=== PATIENT | male | born 1975 | race Caucasian/White ===

== ENCOUNTER 2020-03-26 12:20 | Emergency (ER) | payer OTHER ==
[~2020-03-26] VITALS: Ht 175.3 cm; Wt 108.9 kg
[~2020-03-26 12:20] MED LIST: ACYC800 PO; AZIT500 PO; ERYT.5TO OD; HYDACE5 PO
== END 2020-03-26 16:11 | disposition home or self-care (01) ==
LOC: ER 12:20
DX: S51.811A Laceration without foreign body of right forearm, initial encounter (principal); Z23 Encounter for immunization; W25.XXXA Contact with sharp glass, initial encounter; Y92.89 Other specified places as the place of occurrence of the external cause; Y99.0 Civilian activity done for income or pay
CPT/HCPCS: 12002; 73070; 90471; 90714; 99283-25